=== PATIENT | male | born 1955 | race Caucasian/White ===

== ENCOUNTER 2017-08-01 13:17 | Emergency (ER) | payer MEDICAID, OTHER ==
[~2017-08-01] VITALS: Ht 177.8 cm; Wt 84.5 kg
[~2017-08-01 13:17] MED LIST: ALBU8HFA PO; ATEN25TA PO; NIT5P TD; NITR0.4T SL; SPIIN INH
[2017-08-01] MEDS ORDERED: ketorolac trometh. 30mg/ml inj. IV ONE (13:20)
[2017-08-01] MEDS ORDERED: normal saline 1000ML IV soln IVB ONE (13:20)
[2017-08-01 13:46] LABS: BASOPHILS # (AUTO) 0.1 X10'3 (0-0.2); BASOPHILS % (AUTO) 0.9 % (0-1); EOSINOPHILS # (AUTO) 0.1 X10'3 (0-0.9); EOSINOPHILS % (AUTO) 2.1 % (0-6); HEMATOCRIT 48.9 % (42.0-52.0); HEMOGLOBIN 16.9 g/dl (14.0-17.9); LYMPHOCYTES # (AUTO) 1.6 X10'3 (1.1-4.8); MEAN CORPUSCULAR HEMOGLOBIN 32.3 PG (27.0-31.0); MEAN CORPUSCULAR HGB CONC 34.5 % (33.0-36.5); MEAN CORPUSCULAR VOLUME 93.6 FL (78-98); MEAN PLATELET VOLUME 7.4 FL (7.4-10.4); MONOCYTES # (AUTO) 0.4 X10'3 (0-0.9); MONOCYTES % (AUTO) 7.2 % (2-12); NEUTROPHILS # (AUTO) 3.8 X10'3 (1.8-7.7); NEUTROPHILS % (AUTO) 62.8 % (42-75); PLATELET COUNT 128 X10'3 (140-440); RED BLOOD COUNT 5.23 X10'6 (4.70-6.10); RED CELL DISTRIBUTION WIDTH 13.9 % (11.5-14.5)
[2017-08-01 14:01] LABS: ALANINE AMINOTRANSFERASE 165 U/L (12-78); ALBUMIN 3.5 G/DL (3.4-5.0); ALBUMIN/GLOBULIN RATIO 0.9 (1.1-1.5); ALKALINE PHOSPHATASE 95 IU/L (46-116); ANION GAP 8 (8-16); ASPARTATE AMINO TRANSFERASE 58 U/L (10-37); BILIRUBIN,TOTAL 0.5 MG/DL (0.1-1.0); BLOOD UREA NITROGEN 17 MG/DL (7-18); BUN/CREATININE RATIO 20.2 (5.4-32.0); CALCIUM 8.7 MG/DL (8.5-10.1); CHLORIDE 105 MMOL/L (99-107); CREATININE 0.84 MG/DL (0.60-1.10); GLUCOSE 183 MG/DL (70-104); POTASSIUM 4.4 MMOL/L (3.5-5.1); SODIUM 140 MMOL/L (135-145); TOTAL CARBON DIOXIDE 27.5 MMOL/L (24-32); TOTAL PROTEIN 7.6 G/DL (6.4-8.2); eGFR > 90 ML/MIN
[2017-08-01 14:08] LABS: MAGNESIUM 1.9 MG/DL (1.5-2.4)
[2017-08-01 14:33] VITALS: BP 135/88
== END 2017-08-01 14:35 ==
LOC: EEVIPCON 13:17 → ER 13:17
DX: R07.89 Other chest pain (principal); I10 Essential (primary) hypertension; I25.2 Old myocardial infarction
CPT/HCPCS: 36415; 71045; 80053; 83735; 83880; 84484; 85025; 93005; 96374; 99285; J1885; J7030

== ENCOUNTER 2023-01-27 03:50 | Emergency (ER) | payer MEDICARE, MEDICAID ==
[~2023-01-27] VITALS: Ht 177.8 cm; Wt 81.5 kg
[~2023-01-27 03:50] MED LIST changes: +ATEN-236 PO; -ATEN25TA PO; -NIT5P TD; +NITR1PAT63 TD
[2023-01-27 04:09] VITALS: BP 126/74; PULSE 92; RESP 20; TEMP 98.5; O2SAT 96
[2023-01-27 04:53] LABS: BASOPHILS % (AUTO) 1.7 % (0-1); EOSINOPHILS # (AUTO) 0.4 X10'3 (0-0.9); EOSINOPHILS % (AUTO) 15.3 % (0-6); HEMATOCRIT 25.5 % (42.0-52.0); HEMOGLOBIN 8.2 g/dl (14.0-17.9); LYMPHOCYTES # (AUTO) 0.5 X10'3 (1.1-4.8); LYMPHOCYTES % (AUTO) 18.2 % (21-51); MEAN CORPUSCULAR HEMOGLOBIN 24.3 PG (27.0-31.0); MEAN CORPUSCULAR HGB CONC 32.2 g/dL (33.0-36.5); MEAN CORPUSCULAR VOLUME 75.4 FL (78-98); MEAN PLATELET VOLUME 7.9 FL (7.4-10.4); MONOCYTES # (AUTO) 0.4 X10'3 (0-0.9); MONOCYTES % (AUTO) 14.7 % (2-12); NEUTROPHILS # (AUTO) 1.3 X10'3 (1.8-7.7); NEUTROPHILS % (AUTO) 50.1 % (42-75); RED BLOOD COUNT 3.38 X10'6 (4.70-6.10); RED CELL DISTRIBUTION WIDTH 22.1 % (11.5-14.5); WHITE BLOOD COUNT 2.6 X10'3 (4.5-11.0)
[2023-01-27 05:07] LABS: ALANINE AMINOTRANSFERASE 41 U/L (12-78); ALBUMIN 2.6 G/DL (3.4-5.0); ALBUMIN/GLOBULIN RATIO 0.5 (1.1-1.5); ALKALINE PHOSPHATASE 119 IU/L (46-116); ANION GAP 9 (8-16); ASPARTATE AMINO TRANSFERASE 76 U/L (10-37); BILIRUBIN,TOTAL 1.5 MG/DL (0.1-1.0); BLOOD UREA NITROGEN 14 MG/DL (7-18); BUN/CREATININE RATIO 19.2 (10.0-20.0); CALCIUM 7.7 MG/DL (8.5-10.1); CHLORIDE 102 MMOL/L (99-107); CREATININE 0.73 MG/DL (0.60-1.10); ETHANOL 15 MG/DL (<10); GLUCOSE 101 MG/DL (70-104); LIPASE 35 U/L (16-77); MAGNESIUM 1.9 MG/DL (1.5-2.4); POTASSIUM 3.9 MMOL/L (3.5-5.1); SODIUM 132 MMOL/L (135-145); TOTAL CARBON DIOXIDE 21.4 MMOL/L (24-32); TOTAL PROTEIN 7.4 G/DL (6.4-8.2); eCRCL 103 ML/MIN; eGFR > 90 ML/MIN
[2023-01-27] MEDS ORDERED: PERM60CR19 TOP (05:18)
[2023-01-27 05:42] LABS: PLATELET COUNT 41 X10'3 (140-440)
[2023-01-27 05:49] LABS: TOTAL CELLS COUNTED 100
[2023-01-27 05:50] LABS: ANISOCYTOSIS 3+; MICROCYTOSIS 1+; PLATELET ESTIMATE DECREASED
== END 2023-01-27 05:26 | disposition home or self-care (01) ==
LOC: ER 03:51
DX: B86 Scabies (principal)
CPT/HCPCS: 36415; 80053; 80320; 83690; 83735; 85007; 85025; 99283

== ENCOUNTER 2023-06-02 00:04 | Inpatient (IN) | payer MEDICARE, MEDICAID ==
[~2023-06-02] VITALS: Ht 180.3 cm; Wt 85.0 kg
[~2023-06-02 00:04] MED LIST changes: +PERM60CR19 TOP
[2023-06-02 02:17] LABS: ALANINE AMINOTRANSFERASE 19 U/L (12-78); ALBUMIN/GLOBULIN RATIO 0.4 (1.1-1.5); ALKALINE PHOSPHATASE 107 IU/L (46-116); ANION GAP 5 (8-16); ASPARTATE AMINO TRANSFERASE 32 U/L (10-37); BILIRUBIN,TOTAL 1.4 MG/DL (0.1-1.0); BLOOD UREA NITROGEN 11 MG/DL (7-18); BUN/CREATININE RATIO 16.7 (10.0-20.0); CALCIUM 7.5 MG/DL (8.5-10.1); CHLORIDE 105 MMOL/L (99-107); CREATININE 0.66 MG/DL (0.60-1.10); POTASSIUM 3.7 MMOL/L (3.5-5.1); SODIUM 135 MMOL/L (135-145); TOTAL CARBON DIOXIDE 24.6 MMOL/L (24-32); TOTAL PROTEIN 7.5 G/DL (6.4-8.2); eCRCL 117 ML/MIN; eGFR > 90 ML/MIN
[2023-06-02 02:18] LABS: BASOPHILS % (AUTO) 1.1 % (0-1); EOSINOPHILS # (AUTO) 0.1 X10'3 (0-0.9); EOSINOPHILS % (AUTO) 5.6 % (0-6); HEMATOCRIT 23.3 % (42.0-52.0); HEMOGLOBIN 7.4 g/dl (14.0-17.9); LYMPHOCYTES # (AUTO) 0.4 X10'3 (1.1-4.8); LYMPHOCYTES % (AUTO) 16.6 % (21-51); MEAN CORPUSCULAR HEMOGLOBIN 25.6 PG (27.0-31.0); MEAN CORPUSCULAR HGB CONC 31.9 g/dL (33.0-36.5); MEAN CORPUSCULAR VOLUME 80.2 FL (78-98); MEAN PLATELET VOLUME 7.5 FL (7.4-10.4); MONOCYTES # (AUTO) 0.4 X10'3 (0-0.9); MONOCYTES % (AUTO) 16.6 % (2-12); NEUTROPHILS # (AUTO) 1.4 X10'3 (1.8-7.7); NEUTROPHILS % (AUTO) 60.1 % (42-75); RED CELL DISTRIBUTION WIDTH 21.1 % (11.5-14.5); WHITE BLOOD COUNT 2.3 X10'3 (4.5-11.0)
[2023-06-02 02:26] LABS: PRO BRAIN NATRIURETIC PEPTIDE 185 PG/ML (0-125)
[2023-06-02 02:39] LABS: GLUCOSE 88 MG/DL (70-104)
[2023-06-02] MEDS ORDERED: iohexol 350MG/ML 100ml bottle IV ONE (02:40)
[2023-06-02 04:45] LABS: PLATELET COUNT 41 X10'3 (140-440)
[2023-06-02 05:03] LABS: PLATELET ESTIMATE DECREASED; TOTAL CELLS COUNTED 100
[2023-06-02 05:04] LABS: ANISOCYTOSIS 3+
[2023-06-02 05:05] LABS: MICROCYTOSIS 1+
[2023-06-02] MEDS: ipratropium/albuterol 3ml nebule NEB ONE (05:49)
[2023-06-02 05:52] VITALS: PULSE 103; RESP 22; O2SAT 94
[2023-06-02 05:55] VITALS: PULSE 105; RESP 18; O2SAT 99
[2023-06-02] MEDS ORDERED: HYDROcodone/acetaminophen 5mg/325mg tablet PO PRN (05:55)
[2023-06-02] MEDS ORDERED: mag hydrox/Alum hydrox/simeth 30ml oral suspension PO PRN (05:55)
[2023-06-02] MEDS ORDERED: ondansetron/PF 4mg/2ml inj IV PRN (05:55)
[2023-06-02] MEDS ORDERED: acetaminophen 325mg tablet PO PRN ×2 (05:55)
[2023-06-02] MEDS ORDERED: morphine 2 MG/ML inj. syringe IV PRN ×2 (05:55)
[2023-06-02] MEDS ORDERED: magnesium hydroxide 30ml (MOM) UD suspension PO PRN (05:55)
[2023-06-02 07:35] LABS: APTT 30 SECONDS (22-32); INR 1.4 INR; PROTHROMBIN TIME 14.5 SECONDS (9.0-12.0)
[2023-06-02] MEDS: normal saline 1000ml 1,000 ML IV SCH (07:45)
[2023-06-02] MEDS: docusate sod 100mg capsule PO SCH (08:00)
[2023-06-02] MEDS: levoFLOXACIN 750MG TABLET PO SCH (11:13)
[2023-06-02] MEDS: HYDROcodone/acetaminophen 10/325mg tab PO PRN (11:14)
[2023-06-02] MEDS ORDERED: dextrose 50%-water 50ml dispensing syringe IV PRN (16:00)
[2023-06-02] MEDS ORDERED: LORazepam 2 mg/ml vial IV PRN (16:00)
[2023-06-02] MEDS ORDERED: LORazepam 1 MG tablet PO PRN (16:00)
[2023-06-02 21:42] VITALS: BP 130/78; PULSE 96; RESP 18; TEMP 97.5; O2SAT 96
[2023-06-02] MEDS: atenolol 25mg tablet PO SCH (21:51)
[2023-06-03] VITALS (12 sets, daily range): BP systolic 113–128; BP diastolic 59–79; PULSE 67–85; RESP 16–22; TEMP 98–98.9; O2SAT 90–95
[2023-06-03 06:57] LABS: EOSINOPHILS # (AUTO) 0.2 X10'3 (0-0.9); LYMPHOCYTES # (AUTO) 0.5 X10'3 (1.1-4.8); MEAN CORPUSCULAR HEMOGLOBIN 25.6 PG (27.0-31.0); MEAN CORPUSCULAR HGB CONC 31.7 g/dL (33.0-36.5); MEAN PLATELET VOLUME 7.2 FL (7.4-10.4); MONOCYTES # (AUTO) 0.4 X10'3 (0-0.9)
[2023-06-03 06:58] LABS: ALANINE AMINOTRANSFERASE 17 U/L (12-78); ALBUMIN/GLOBULIN RATIO 0.3 (1.1-1.5); ALKALINE PHOSPHATASE 122 IU/L (46-116); ANION GAP 5 (8-16); ASPARTATE AMINO TRANSFERASE 35 U/L (10-37); BILIRUBIN,TOTAL 1.7 MG/DL (0.1-1.0); BLOOD UREA NITROGEN 13 MG/DL (7-18); BUN/CREATININE RATIO 21.3 (10.0-20.0); CALCIUM 7.4 MG/DL (8.5-10.1); CHLORIDE 105 MMOL/L (99-107); CREATININE 0.61 MG/DL (0.60-1.10); LIPASE 35 U/L (16-77); SODIUM 134 MMOL/L (135-145); TOTAL CARBON DIOXIDE 24.1 MMOL/L (24-32); TOTAL PROTEIN 7.9 G/DL (6.4-8.2); eCRCL 127 ML/MIN; eGFR > 90 ML/MIN
[2023-06-03 07:00] LABS: HEMATOCRIT 25.1 % (42.0-52.0); LYMPHOCYTES % (AUTO) 15.2 % (21-51); MONOCYTES % (AUTO) 11.3 % (2-12); NEUTROPHILS # (AUTO) 2.3 X10'3 (1.8-7.7); NEUTROPHILS % (AUTO) 67.5 % (42-75); WHITE BLOOD COUNT 3.4 X10'3 (4.5-11.0)
[2023-06-03 07:08] LABS: GLUCOSE 91 MG/DL (70-104)
[2023-06-03 07:15] LABS: PLATELET COUNT 46 X10'3 (140-440)
[2023-06-03] MEDS: ipratropium 0.5 MG/2.5ML nebule IH SCH (08:24)
[2023-06-03] MEDS: multivitamins, therapeutics tablet PO SCH (08:46)
[2023-06-03] MEDS: nicotine 14mg patch - 24hr TD SCH (08:47)
[2023-06-04] VITALS (7 sets, daily range): BP systolic 128–132; BP diastolic 78–86; PULSE 66–89; RESP 10–18; TEMP 97.9–98.6; O2SAT 90–95
[2023-06-04 07:47] LABS: WHITE BLOOD COUNT 2.7 X10'3 (4.5-11.0)
[2023-06-04 07:49] LABS: HEMATOCRIT 24.7 % (42.0-52.0); HEMOGLOBIN 7.9 g/dl (14.0-17.9); MEAN CORPUSCULAR HEMOGLOBIN 25.6 PG (27.0-31.0); MEAN CORPUSCULAR HGB CONC 31.9 g/dL (33.0-36.5); MEAN CORPUSCULAR VOLUME 80.4 FL (78-98); MEAN PLATELET VOLUME 7.9 FL (7.4-10.4); RED BLOOD COUNT 3.08 X10'6 (4.70-6.10); RED CELL DISTRIBUTION WIDTH 20.5 % (11.5-14.5)
[2023-06-04 07:56] LABS: PLATELET COUNT 44 X10'3 (140-440)
[2023-06-04 08:12] LABS: ALANINE AMINOTRANSFERASE 17 U/L (12-78); ALBUMIN 1.9 G/DL (3.4-5.0); ALBUMIN/GLOBULIN RATIO 0.3 (1.1-1.5); ALKALINE PHOSPHATASE 108 IU/L (46-116); ANION GAP 7 (8-16); ASPARTATE AMINO TRANSFERASE 36 U/L (10-37); BILIRUBIN,TOTAL 2.2 MG/DL (0.1-1.0); BLOOD UREA NITROGEN 12 MG/DL (7-18); BUN/CREATININE RATIO 19.7 (10.0-20.0); CALCIUM 7.3 MG/DL (8.5-10.1); CHLORIDE 102 MMOL/L (99-107); CREATININE 0.61 MG/DL (0.60-1.10); LIPASE 28 U/L (16-77); SODIUM 130 MMOL/L (135-145); TOTAL CARBON DIOXIDE 20.7 MMOL/L (24-32); TOTAL PROTEIN 7.6 G/DL (6.4-8.2); eCRCL 127 ML/MIN; eGFR > 90 ML/MIN
[2023-06-04 08:14] LABS: GLUCOSE 76 MG/DL (70-104)
[2023-06-04 08:42] LABS: ANISOCYTOSIS 3+; PLATELET ESTIMATE DECREASED; TOTAL CELLS COUNTED 100
[2023-06-04 08:43] LABS: ACANTHOCYTES FEW; ELLIPTOCYTES FEW; TEAR DROP CELLS FEW
[2023-06-04] MEDS ORDERED: FOLI1TAB27 PO (13:52)
[2023-06-04] MEDS ORDERED: MULT-25 PO (13:52)
[2023-06-04] MEDS ORDERED: LEVO750T68 PO (13:52)
[2023-06-04] MEDS ORDERED: NICO-631 TD (13:52)
[2023-06-04] MEDS ORDERED: thiamine tablet PO (13:52)
[2023-06-06] MEDS ORDERED: thiamine 100mg tablet PO SCH (08:00)
[2023-06-07] MEDS ORDERED: folic acid 1mg tablet PO SCH (08:00)
== END 2023-06-04 17:25 | disposition home or self-care (01) | DRG 193 ==
LOC: ER 00:04 → ED HOLD 05:54 → ORTHO 4S 21:10
PROVIDERS: ADMIT Internal Medicine; ATTEND Internal Medicine
PROC: B32T1ZZ Computerized Tomography (CT Scan) of Left Pulmonary Artery using Low Osmolar Contrast (ICD-10-PCS; principal; 2023-06-02)
PROC: B3201ZZ Computerized Tomography (CT Scan) of Thoracic Aorta using Low Osmolar Contrast (ICD-10-PCS; 2023-06-02)
PROC: B32S1ZZ Computerized Tomography (CT Scan) of Right Pulmonary Artery using Low Osmolar Contrast (ICD-10-PCS; 2023-06-02)
PROC: 05HY33Z Insertion of Infusion Device into Upper Vein, Percutaneous Approach (ICD-10-PCS; 2023-06-02)
DX: J18.9 Pneumonia, unspecified organism (principal); J96.21 Acute and chronic respiratory failure with hypoxia; J44.1 Chronic obstructive pulmonary disease with (acute) exacerbation; D61.818 Other pancytopenia; J44.0 Chronic obstructive pulmonary disease with (acute) lower respiratory infection; R65.10 Systemic inflammatory response syndrome (SIRS) of non-infectious origin without acute organ dysfunction; F17.210 Nicotine dependence, cigarettes, uncomplicated; I25.2 Old myocardial infarction; I50.9 Heart failure, unspecified; R16.1 Splenomegaly, not elsewhere classified; Z20.822 Contact with and (suspected) exposure to COVID-19; K43.9 Ventral hernia without obstruction or gangrene; I11.0 Hypertensive heart disease with heart failure; K72.10 Chronic hepatic failure without coma; K74.60 Unspecified cirrhosis of liver; G89.29 Other chronic pain; M54.9 Dorsalgia, unspecified; F10.20 Alcohol dependence, uncomplicated; I25.10 Atherosclerotic heart disease of native coronary artery without angina pectoris; Z79.899 Other long term (current) drug therapy; Z95.1 Presence of aortocoronary bypass graft
CPT/HCPCS: 36415; 71045; 71275; 80053; 83690; 83880; 84145; 84484; 85007; 85025; 85379; 85610; 85651; 85730; 86885; 86900; 86901; 86920; 87081; 87502; 87503; 87811; 93005; 94640; 94760; 99285; A4615; A6250; G0378; J3490; J7030; Q9967

== ENCOUNTER 2023-11-29 04:58 | Inpatient (IN) | payer MEDICARE, MEDICAID ==
[~2023-11-29] VITALS: Ht 177.8 cm; Wt 81.8 kg
[~2023-11-29 04:58] MED LIST changes: +FOLI1TAB27 PO; +FURO40TA4 PO; +LACT10SO7 PO; +MULT-25 PO; +NICO-631 TD; -NITR1PAT63 TD; +PANT40TA54 PO; -PERM60CR19 TOP; +PRED20TA PO; +RIFA550T PO; +SPIR50TA5 PO; +thiamine tablet PO
[2023-11-29 05:52] LABS: ALANINE AMINOTRANSFERASE 34 U/L (12-78); ALKALINE PHOSPHATASE 119 IU/L (46-116); ANION GAP 5 (8-16); ASPARTATE AMINO TRANSFERASE 43 U/L (10-37); BILIRUBIN,TOTAL 6.8 MG/DL (0.1-1.0); BLOOD UREA NITROGEN 22 MG/DL (7-18); BUN/CREATININE RATIO 23.7 (10.0-20.0); CALCIUM 7.1 MG/DL (8.5-10.1); CHLORIDE 102 MMOL/L (99-107); CREATININE 0.93 MG/DL (0.60-1.10); GLUCOSE 98 MG/DL (70-104); SODIUM 134 MMOL/L (135-145); TOTAL CARBON DIOXIDE 26.7 MMOL/L (24-32); eCRCL 80 ML/MIN; eGFR 81 ML/MIN
[2023-11-29 06:00] LABS: PRO BRAIN NATRIURETIC PEPTIDE 651 PG/ML (0-125)
[2023-11-29 06:02] LABS: ALBUMIN/GLOBULIN RATIO 0.6 (1.1-1.5); POTASSIUM 4.3 MMOL/L (3.5-5.1); TOTAL PROTEIN 5.1 G/DL (6.4-8.2)
[2023-11-29] MEDS: aspirin 81mg tab.chew PO ONE (06:59)
[2023-11-29] MEDS: morphine 2 MG/ML inj. syringe IV ONE (07:01)
[2023-11-29] MEDS: ondansetron/PF 4mg/2ml inj IV ONE (07:01)
[2023-11-29] MEDS: furosemide 10 MG/1 ML 10ml inj IV ONE (07:03)
[2023-11-29] MEDS ORDERED: iohexol 350MG/ML 100ml bottle IV ONE (07:28)
[2023-11-29 08:33] LABS: BASOPHILS % (AUTO) 0.3 % (0-1); HEMATOCRIT 24.4 % (42.0-52.0); HEMOGLOBIN 7.5 g/dl (14.0-17.9); LYMPHOCYTES # (AUTO) 0.6 X10'3 (1.1-4.8); RED BLOOD COUNT 3.13 X10'6 (4.70-6.10); WHITE BLOOD COUNT 10.3 X10'3 (4.5-11.0)
[2023-11-29 08:34] LABS: EOSINOPHILS # (AUTO) 0.1 X10'3 (0-0.9); EOSINOPHILS % (AUTO) 0.6 % (0-6); LYMPHOCYTES % (AUTO) 6.2 % (21-51); MEAN CORPUSCULAR HGB CONC 30.8 g/dL (33.0-36.5); MEAN CORPUSCULAR VOLUME 77.9 FL (78-98); MEAN PLATELET VOLUME 7.9 FL (7.4-10.4); NEUTROPHILS # (AUTO) 8.5 X10'3 (1.8-7.7); NEUTROPHILS % (AUTO) 82.9 % (42-75); RED CELL DISTRIBUTION WIDTH 25.1 % (11.5-14.5)
[2023-11-29 08:42] LABS: MAGNESIUM 1.4 MG/DL (1.5-2.4)
[2023-11-29 09:05] LABS: PLATELET COUNT 13 X10'3 (140-440)
[2023-11-29] MEDS ORDERED: ondansetron/PF 4mg/2ml inj IV PRN (10:10)
[2023-11-29] MEDS ORDERED: magnesium sulf-water 2g/50mL 50 ML IV PRN (10:10)
[2023-11-29] MEDS ORDERED: magnesium sulf-water 4G/100mL 100 ML IV PRN (10:10)
[2023-11-29] MEDS ORDERED: potassium Cl 40MEQ/1/2NS 520ml 520 ML IV PRN (10:10)
[2023-11-29] MEDS ORDERED: potassium Cl 20 mEq SR tablet PO PRN ×2 (10:10)
[2023-11-29] MEDS: albumin (human) 25% 100 ML IV solution IV ONE (10:42)
[2023-11-29] MEDS: magnesium Cl slow-release 64mg tablet PO PRN (11:19)
[2023-11-29 15:00] VITALS: BP 108/69; PULSE 101; RESP 16; TEMP 98.3; O2SAT 96
[2023-11-29 15:20] VITALS: RESP 16; O2SAT 96
[2023-11-29 18:00] VITALS: BP 120/71; PULSE 101; RESP 18; TEMP 97.6; O2SAT 93
[2023-11-29] MEDS: ipratropium/albuterol 3ml nebule NEB SCH (19:00)
[2023-11-29 20:00] VITALS: RESP 20; O2SAT 92
[2023-11-29] MEDS: K and/or MAG REPLACEMENT MC SCH (20:00)
[2023-11-29] MEDS: nystatin 15 GM powder TP SCH (20:00)
[2023-11-29 23:38] VITALS: PULSE 97; RESP 18; O2SAT 95
[2023-11-29 23:43] VITALS: PULSE 72; RESP 20
[2023-11-30] VITALS (22 sets, daily range): BP systolic 91–106; BP diastolic 46–65; PULSE 76–107; RESP 16–24; TEMP 97.5–99; O2SAT 92–98
[2023-11-30] MEDS ORDERED: magnesium sulf-water 4G/100mL 100 ML IV PRN (08:15)
[2023-11-30 08:36] LABS: EOSINOPHILS # (AUTO) 0.3 X10'3 (0-0.9); HEMOGLOBIN 7.1 g/dl (14.0-17.9); LYMPHOCYTES # (AUTO) 0.7 X10'3 (1.1-4.8); MEAN CORPUSCULAR HEMOGLOBIN 23.7 PG (27.0-31.0); NEUTROPHILS # (AUTO) 8.6 X10'3 (1.8-7.7); RED CELL DISTRIBUTION WIDTH 24.8 % (11.5-14.5)
[2023-11-30 08:38] LABS: ANION GAP 4 (8-16); BASOPHILS # (AUTO) 0.1 X10'3 (0-0.2); BASOPHILS % (AUTO) 0.5 % (0-1); BLOOD UREA NITROGEN 21 MG/DL (7-18); BUN/CREATININE RATIO 31.3 (10.0-20.0); CALCIUM 7.1 MG/DL (8.5-10.1); CHLORIDE 101 MMOL/L (99-107); CREATININE 0.67 MG/DL (0.60-1.10); EOSINOPHILS % (AUTO) 3.1 % (0-6); GLUCOSE 105 MG/DL (70-104); HEMATOCRIT 23.6 % (42.0-52.0); LYMPHOCYTES % (AUTO) 6.8 % (21-51); MAGNESIUM 1.8 MG/DL (1.5-2.4); MEAN CORPUSCULAR HGB CONC 30.1 g/dL (33.0-36.5); MEAN CORPUSCULAR VOLUME 78.6 FL (78-98); MEAN PLATELET VOLUME 8.5 FL (7.4-10.4); MONOCYTES # (AUTO) 1.3 X10'3 (0-0.9); MONOCYTES % (AUTO) 11.5 % (2-12); NEUTROPHILS % (AUTO) 78.1 % (42-75); POTASSIUM 4.2 MMOL/L (3.5-5.1); SODIUM 134 MMOL/L (135-145); TOTAL CARBON DIOXIDE 29.1 MMOL/L (24-32); eCRCL 110 ML/MIN; eGFR > 90 ML/MIN
[2023-11-30 09:41] LABS: PLATELET COUNT 23 X10'3 (140-440)
[2023-11-30] MEDS ORDERED: nitroGLYCERIN 0.4mg SUBLingual tab SL PRN (10:35)
[2023-11-30] MEDS: ceFAZolin/D5W- 1GM premix 50 ML IV SCH (18:28)
[2023-11-30] MEDS: pantoprazole 40mg Tablet.DR PO SCH (20:46)
[2023-11-30] MEDS: acetaminophen 325mg tablet PO PRN (20:53)
[2023-11-30] MEDS: Melatonin 3mg tablet PO ONE (21:40)
[2023-12-01] VITALS (31 sets, daily range): BP systolic 99–139; BP diastolic 58–83; PULSE 90–103; RESP 16–34; TEMP 97.3–98.5; O2SAT 90–97
[2023-12-01 01:29] LABS: BASOPHILS # (AUTO) 0.1 X10'3 (0-0.2); EOSINOPHILS # (AUTO) 0.4 X10'3 (0-0.9); LYMPHOCYTES # (AUTO) 0.9 X10'3 (1.1-4.8); MONOCYTES # (AUTO) 1.3 X10'3 (0-0.9)
[2023-12-01 01:31] LABS: BASOPHILS % (AUTO) 0.7 % (0-1); HEMATOCRIT 25.5 % (42.0-52.0); HEMOGLOBIN 8.2 g/dl (14.0-17.9); LYMPHOCYTES % (AUTO) 9.7 % (21-51); MEAN CORPUSCULAR VOLUME 77.9 FL (78-98); MEAN PLATELET VOLUME 8.6 FL (7.4-10.4); MONOCYTES % (AUTO) 14.6 % (2-12); NEUTROPHILS # (AUTO) 6.4 X10'3 (1.8-7.7); RED BLOOD COUNT 3.27 X10'6 (4.70-6.10); RED CELL DISTRIBUTION WIDTH 23.4 % (11.5-14.5)
[2023-12-01 02:13] LABS: PLATELET COUNT 28 X10'3 (140-440)
[2023-12-01 02:26] LABS: PLATELET ESTIMATE DECREASED
[2023-12-01 02:27] LABS: ACANTHOCYTES FEW; ANISOCYTOSIS 3+; BURR CELLS FEW; HYPOCHROMASIA 2+; MICROCYTOSIS 1+; SCHISTOCYTES FEW; TARGET CELLS FEW
[2023-12-01 02:28] LABS: ELLIPTOCYTES 1+; POIKILOCYTOSIS 2+; POLYCHROMASIA 1+
[2023-12-01 08:33] LABS: ANION GAP 0 (8-16); BLOOD UREA NITROGEN 19 MG/DL (7-18); BUN/CREATININE RATIO 32.8 (10.0-20.0); CALCIUM 7.3 MG/DL (8.5-10.1); CHLORIDE 101 MMOL/L (99-107); CREATININE 0.58 MG/DL (0.60-1.10); GLUCOSE 115 MG/DL (70-104); MAGNESIUM 1.9 MG/DL (1.5-2.4); POTASSIUM 3.8 MMOL/L (3.5-5.1); SODIUM 131 MMOL/L (135-145); eCRCL 128 ML/MIN; eGFR > 90 ML/MIN
[2023-12-01] MEDS: spironolactone 50 MG tablet PO SCH (10:22)
[2023-12-01] MEDS: ipratropium/albuterol 3ml nebule NEB SCH (10:45)
[2023-12-01 10:48] LABS: ABG BASE EXCESS 0.7 mmol/L (-2.0-3.0); ABG OXYGEN SATURATION 94.3 % (94.0-98.0); ABG PCO2 (T) 44.6 mmHg (35.0-48.0); ABG PH (T) 7.383 (7.350-7.450); ABG PO2 (T) 73.7 mmHg (83.0-108.0); ALLEN'S TEST POSITIVE; FCOHb 1.6 % (0.5-1.5); FHHb 5.6 % (0.0-5.0); FLOW 8 L/min; FMetHb 0.3 % (0.0-1.5); FO2Hb 92.5 % (94.0-98.0); MODE MASK - SIMPLE; TOTAL HEMOGLOBIN 9.4 G/dl (13.5-17.5)
[2023-12-01] MEDS: furosemide 20 MG/2 ML vial ONE (10:48)
[2023-12-01] MEDS: furosemide 40mg/4ml inj IV STA (10:52)
[2023-12-01] MEDS: methylPREDNISolone sod succ 125mg/2ml vial IV ONE (11:03)
[2023-12-01 11:26] LABS: APTT 37 SECONDS (22-32); INR 2.1 INR; PROTHROMBIN TIME 20.6 SECONDS (9.0-12.0)
[2023-12-01 11:35] LABS: ALBUMIN 2.1 G/DL (3.4-5.0); ANION GAP 4 (8-16); BLOOD UREA NITROGEN 17 MG/DL (7-18); BUN/CREATININE RATIO 25.8 (10.0-20.0); CALCIUM 7.3 MG/DL (8.5-10.1); CHLORIDE 100 MMOL/L (99-107); CREATININE 0.66 MG/DL (0.60-1.10); GLUCOSE 148 MG/DL (70-104); POTASSIUM 3.9 MMOL/L (3.5-5.1); PRO BRAIN NATRIURETIC PEPTIDE 659 PG/ML (0-125); SODIUM 131 MMOL/L (135-145); TOTAL CARBON DIOXIDE 27.2 MMOL/L (24-32); eCRCL 112 ML/MIN; eGFR > 90 ML/MIN
[2023-12-01 11:36] LABS: BASOPHILS % (AUTO) 0.5 % (0-1); EOSINOPHILS # (AUTO) 0.4 X10'3 (0-0.9); EOSINOPHILS % (AUTO) 4.5 % (0-6); HEMATOCRIT 26.6 % (42.0-52.0); HEMOGLOBIN 8.5 g/dl (14.0-17.9); LYMPHOCYTES # (AUTO) 0.7 X10'3 (1.1-4.8); LYMPHOCYTES % (AUTO) 8.9 % (21-51); MEAN CORPUSCULAR HEMOGLOBIN 25.4 PG (27.0-31.0); MEAN CORPUSCULAR VOLUME 79.4 FL (78-98); MEAN PLATELET VOLUME 8.2 FL (7.4-10.4); MONOCYTES % (AUTO) 12.1 % (2-12); NEUTROPHILS # (AUTO) 6.1 X10'3 (1.8-7.7); PHOSPHORUS 2.3 MG/DL (2.3-4.5); RED BLOOD COUNT 3.35 X10'6 (4.70-6.10); RED CELL DISTRIBUTION WIDTH 23.6 % (11.5-14.5); WHITE BLOOD COUNT 8.3 X10'3 (4.5-11.0)
[2023-12-01 11:43] LABS: PLATELET COUNT 44 X10'3 (140-440)
[2023-12-01] MEDS: magnesium hydroxide 30ml (MOM) UD suspension PO PRN (13:07)
[2023-12-01] MEDS: acetaminophen 325mg tablet PO PRN (14:54)
[2023-12-01] MEDS: traMADol 50MG tablet PO PRN (15:19)
[2023-12-01 16:46] LABS: ABG BASE EXCESS 1.1 mmol/L (-2.0-3.0); ABG OXYGEN SATURATION 92.9 % (94.0-98.0); ABG PCO2 (T) 41.9 mmHg (35.0-48.0); ABG PH (T) 7.409 (7.350-7.450); ABG PO2 (T) 68.3 mmHg (83.0-108.0); ALLEN'S TEST POSITIVE; FCOHb 0.9 % (0.5-1.5); FLOW 25 L/min; FMetHb 0.3 % (0.0-1.5); FO2Hb 91.8 % (94.0-98.0); MODE HIGH FLOW; PATIENT TEMPERATURE 36.8; TOTAL HEMOGLOBIN 9.8 G/dl (13.5-17.5)
[2023-12-01] MEDS: PERFLUTREN PROTEIN-A MICROSPHR (Optison) 0.22 MG/ML 3ML VIAL IV ONE (16:50)
[2023-12-01] MEDS: furosemide 40mg/4ml inj IV ONE (17:20)
[2023-12-01] MEDS: albumin (human) 25% 100 ML IV solution IV ONE (17:28)
[2023-12-01 17:34] LABS: D-DIMER 3.31 MG/L FEU (0-0.50)
[2023-12-01] MEDS: methylPREDNISolone sod succ 125mg/2ml vial IV SCH (20:18)
[2023-12-01] MEDS ORDERED: Melatonin 3mg tablet PO ONE (21:00)
[2023-12-01] MEDS: LORazepam 2 mg/ml vial IV ONE (21:09)
[2023-12-02] VITALS (27 sets, daily range): BP systolic 99–119; BP diastolic 51–95; PULSE 76–103; RESP 13–35; TEMP 96.4–98.2; O2SAT 93–99
[2023-12-02] MEDS ORDERED: LORazepam 2 mg/ml vial IV PRN (04:00)
[2023-12-02] MEDS: LORazepam 2 mg/ml vial IV ONE (04:17)
[2023-12-02 07:26] LABS: ALBUMIN 2.4 G/DL (3.4-5.0); ANION GAP 3 (8-16); BLOOD UREA NITROGEN 22 MG/DL (7-18); BUN/CREATININE RATIO 25.9 (10.0-20.0); CALCIUM 7.4 MG/DL (8.5-10.1); CHLORIDE 100 MMOL/L (99-107); CREATININE 0.85 MG/DL (0.60-1.10); GLUCOSE 153 MG/DL (70-104); MAGNESIUM 1.9 MG/DL (1.5-2.4); POTASSIUM 4.4 MMOL/L (3.5-5.1); SODIUM 133 MMOL/L (135-145); TOTAL CARBON DIOXIDE 30.1 MMOL/L (24-32); eCRCL 87 ML/MIN; eGFR 90 ML/MIN
[2023-12-02 08:18] LABS: BASOPHILS % (AUTO) 0.1 % (0-1); EOSINOPHILS % (AUTO) 0 % (0-6); HEMATOCRIT 28.6 % (42.0-52.0); HEMOGLOBIN 8.8 g/dl (14.0-17.9); LYMPHOCYTES # (AUTO) 0.5 X10'3 (1.1-4.8); LYMPHOCYTES % (AUTO) 5.1 % (21-51); MEAN CORPUSCULAR HEMOGLOBIN 24.7 PG (27.0-31.0); MEAN CORPUSCULAR HGB CONC 30.9 g/dL (33.0-36.5); MEAN CORPUSCULAR VOLUME 79.8 FL (78-98); MEAN PLATELET VOLUME 8.2 FL (7.4-10.4); MONOCYTES # (AUTO) 0.5 X10'3 (0-0.9); MONOCYTES % (AUTO) 5.3 % (2-12); NEUTROPHILS # (AUTO) 9.4 X10'3 (1.8-7.7); NEUTROPHILS % (AUTO) 89.5 % (42-75); RED BLOOD COUNT 3.58 X10'6 (4.70-6.10); RED CELL DISTRIBUTION WIDTH 24.1 % (11.5-14.5); WHITE BLOOD COUNT 10.4 X10'3 (4.5-11.0)
[2023-12-02 08:21] LABS: PLATELET COUNT 46 X10'3 (140-440)
[2023-12-02] MEDS: levoFLOXACIN-Levaquin 500mg/D5 100 ML IV SCH (10:36)
[2023-12-02 14:53] LABS: ABG BASE EXCESS 5.4 mmol/L (-2.0-3.0); ABG HCO3 30.3 mmol/L (21.0-28.0); ABG OXYGEN SATURATION 95.6 % (94.0-98.0); ABG PCO2 (T) 45.8 mmHg (35.0-48.0); ABG PH (T) 7.438 (7.350-7.450); ABG PO2 (T) 77.5 mmHg (83.0-108.0); ALLEN'S TEST POSITIVE; FCOHb 0.3 % (0.5-1.5); FHHb 4.4 % (0.0-5.0); FMetHb 0.3 % (0.0-1.5); MODE MASK - BIPAP; RESPIRATORY RATE 12 b/min; TOTAL HEMOGLOBIN 9.4 G/dl (13.5-17.5)
[2023-12-02] MEDS: furosemide 40mg/4ml inj IV SCH (15:55)
[2023-12-02] MEDS: morphine 2 MG/ML inj. syringe IV ONE (22:07)
[2023-12-03] VITALS (28 sets, daily range): BP systolic 105–128; BP diastolic 67–77; PULSE 78–110; RESP 13–32; TEMP 97.3–98.8; O2SAT 92–98
[2023-12-03 07:50] LABS: BASOPHILS % (AUTO) 0 % (0-1); EOSINOPHILS % (AUTO) 0 % (0-6); HEMATOCRIT 28.3 % (42.0-52.0); HEMOGLOBIN 8.6 g/dl (14.0-17.9); LYMPHOCYTES # (AUTO) 0.6 X10'3 (1.1-4.8); LYMPHOCYTES % (AUTO) 4.8 % (21-51); MEAN CORPUSCULAR HEMOGLOBIN 24.6 PG (27.0-31.0); MEAN CORPUSCULAR HGB CONC 30.4 g/dL (33.0-36.5); MEAN CORPUSCULAR VOLUME 80.9 FL (78-98); MEAN PLATELET VOLUME 8.1 FL (7.4-10.4); MONOCYTES # (AUTO) 0.5 X10'3 (0-0.9); MONOCYTES % (AUTO) 4.3 % (2-12); NEUTROPHILS % (AUTO) 90.9 % (42-75); PLATELET COUNT 61 X10'3 (140-440); RED BLOOD COUNT 3.49 X10'6 (4.70-6.10); RED CELL DISTRIBUTION WIDTH 24.5 % (11.5-14.5); WHITE BLOOD COUNT 12.1 X10'3 (4.5-11.0)
[2023-12-03 07:53] LABS: ALBUMIN 2.2 G/DL (3.4-5.0); ANION GAP 2 (8-16); BLOOD UREA NITROGEN 31 MG/DL (7-18); BUN/CREATININE RATIO 36.5 (10.0-20.0); CALCIUM 7.6 MG/DL (8.5-10.1); CHLORIDE 101 MMOL/L (99-107); CREATININE 0.85 MG/DL (0.60-1.10); GLUCOSE 133 MG/DL (70-104); MAGNESIUM 2.1 MG/DL (1.5-2.4); POTASSIUM 4.7 MMOL/L (3.5-5.1); SODIUM 134 MMOL/L (135-145); TOTAL CARBON DIOXIDE 31.3 MMOL/L (24-32); eCRCL 87 ML/MIN; eGFR 90 ML/MIN
[2023-12-03 11:45] LABS: ABG BASE EXCESS 4.3 mmol/L (-2.0-3.0); ABG HCO3 28.9 mmol/L (21.0-28.0); ABG OXYGEN SATURATION 92.5 % (94.0-98.0); ABG PCO2 (T) 42.5 mmHg (35.0-48.0); ABG PH (T) 7.449 (7.350-7.450); ABG PO2 (T) 64.7 mmHg (83.0-108.0); ALLEN'S TEST POSITIVE; FCOHb 0.4 % (0.5-1.5); FHHb 7.4 % (0.0-5.0); FLOW 25 L/min; FMetHb 0.3 % (0.0-1.5); FO2Hb 91.9 % (94.0-98.0); MODE HIGH FLOW; PATIENT TEMPERATURE 36.6
[2023-12-03] MEDS: methylPREDNISolone sod succ/PF 40mg inj. IV SCH (19:42)
[2023-12-03] MEDS: furosemide 40mg/4ml inj IV SCH (19:45)
[2023-12-03] MEDS: LORazepam 2 mg/ml vial IV PRN (23:49)
[2023-12-04] VITALS (26 sets, daily range): BP systolic 119–154; BP diastolic 73–91; PULSE 82–105; RESP 14–27; TEMP 97.1–98.1; O2SAT 12–98
[2023-12-04 07:14] LABS: ALBUMIN 2.2 G/DL (3.4-5.0); ANION GAP 0 (8-16); BLOOD UREA NITROGEN 35 MG/DL (7-18); BUN/CREATININE RATIO 49.3 (10.0-20.0); CALCIUM 7.6 MG/DL (8.5-10.1); CHLORIDE 101 MMOL/L (99-107); CREATININE 0.71 MG/DL (0.60-1.10); GLUCOSE 132 MG/DL (70-104); POTASSIUM 4.5 MMOL/L (3.5-5.1); SODIUM 135 MMOL/L (135-145); TOTAL CARBON DIOXIDE 33.7 MMOL/L (24-32); eCRCL 104 ML/MIN; eGFR > 90 ML/MIN
[2023-12-04 07:15] LABS: BASOPHILS % (AUTO) 0.2 % (0-1); EOSINOPHILS % (AUTO) 0 % (0-6); HEMATOCRIT 25.7 % (42.0-52.0); HEMOGLOBIN 8.2 g/dl (14.0-17.9); LYMPHOCYTES # (AUTO) 0.4 X10'3 (1.1-4.8); LYMPHOCYTES % (AUTO) 4.8 % (21-51); MEAN CORPUSCULAR HEMOGLOBIN 25.3 PG (27.0-31.0); MEAN CORPUSCULAR HGB CONC 31.8 g/dL (33.0-36.5); MEAN CORPUSCULAR VOLUME 79.5 FL (78-98); MEAN PLATELET VOLUME 8.2 FL (7.4-10.4); MONOCYTES # (AUTO) 0.6 X10'3 (0-0.9); MONOCYTES % (AUTO) 6.2 % (2-12); NEUTROPHILS # (AUTO) 8.2 X10'3 (1.8-7.7); NEUTROPHILS % (AUTO) 88.8 % (42-75); PLATELET COUNT 66 X10'3 (140-440); RED BLOOD COUNT 3.24 X10'6 (4.70-6.10); RED CELL DISTRIBUTION WIDTH 25.5 % (11.5-14.5); WHITE BLOOD COUNT 9.3 X10'3 (4.5-11.0)
[2023-12-04 09:30] LABS: ALANINE AMINOTRANSFERASE 34 U/L (12-78); ALBUMIN/GLOBULIN RATIO 0.7 (1.1-1.5); ALKALINE PHOSPHATASE 111 IU/L (46-116); ASPARTATE AMINO TRANSFERASE 34 U/L (10-37); BILIRUBIN,DIRECT 1.9 MG/DL (0-0.3); BILIRUBIN,TOTAL 3.6 MG/DL (0.1-1.0); TOTAL PROTEIN 5.3 G/DL (6.4-8.2)
[2023-12-04] MEDS: lactose-reduced food (Ensure High Protein) 237ml bottle PO SCH (18:00)
[2023-12-05] VITALS (26 sets, daily range): BP systolic 124–144; BP diastolic 72–86; PULSE 92–105; RESP 18–28; TEMP 97.6–98.2; O2SAT 91–99
[2023-12-05 09:50] LABS: ABG BASE EXCESS 7.8 mmol/L (-2.0-3.0); ABG HCO3 32.7 mmol/L (21.0-28.0); ABG OXYGEN SATURATION 92.7 % (94.0-98.0); ABG PH (T) 7.467 (7.350-7.450); ABG PO2 (T) 63.1 mmHg (83.0-108.0); ALLEN'S TEST Modified; FCOHb 0.8 % (0.5-1.5); FHHb 7.2 % (0.0-5.0); FLOW 35 L/min; FMetHb 0.3 % (0.0-1.5); FO2Hb 91.7 % (94.0-98.0); MODE HIGH FLOW; PATIENT TEMPERATURE 36.1
[2023-12-05] MEDS: levoFLOXACIN 500mg tablet PO SCH (11:25)
[2023-12-06] VITALS (22 sets, daily range): BP systolic 114–137; BP diastolic 62–82; PULSE 84–111; RESP 19–30; TEMP 97.6–98.3; O2SAT 87–100
[2023-12-06 10:38] LABS: ALANINE AMINOTRANSFERASE 49 U/L (12-78); ALBUMIN 2.6 G/DL (3.4-5.0); ALKALINE PHOSPHATASE 126 IU/L (46-116); ANION GAP 1 (8-16); ASPARTATE AMINO TRANSFERASE 45 U/L (10-37); BILIRUBIN,TOTAL 4.3 MG/DL (0.1-1.0); BLOOD UREA NITROGEN 25 MG/DL (7-18); BUN/CREATININE RATIO 34.7 (10.0-20.0); CALCIUM 7.7 MG/DL (8.5-10.1); CHLORIDE 98 MMOL/L (99-107); CREATININE 0.72 MG/DL (0.60-1.10); GLUCOSE 175 MG/DL (70-104); POTASSIUM 4.1 MMOL/L (3.5-5.1); SODIUM 133 MMOL/L (135-145); TOTAL CARBON DIOXIDE 34.5 MMOL/L (24-32); eCRCL 103 ML/MIN; eGFR > 90 ML/MIN
[2023-12-06 10:44] LABS: ALBUMIN/GLOBULIN RATIO 0.8 (1.1-1.5)
[2023-12-06 11:12] LABS: BASOPHILS % (AUTO) 0.1 % (0-1); EOSINOPHILS % (AUTO) 0 % (0-6); HEMATOCRIT 29.4 % (42.0-52.0); LYMPHOCYTES # (AUTO) 0.4 X10'3 (1.1-4.8); LYMPHOCYTES % (AUTO) 4.6 % (21-51); MEAN CORPUSCULAR HEMOGLOBIN 24.7 PG (27.0-31.0); MEAN CORPUSCULAR HGB CONC 30.6 g/dL (33.0-36.5); MEAN CORPUSCULAR VOLUME 80.5 FL (78-98); MEAN PLATELET VOLUME 8.1 FL (7.4-10.4); MONOCYTES # (AUTO) 0.7 X10'3 (0-0.9); MONOCYTES % (AUTO) 8.1 % (2-12); NEUTROPHILS # (AUTO) 8.1 X10'3 (1.8-7.7); NEUTROPHILS % (AUTO) 87.2 % (42-75); PLATELET COUNT 53 X10'3 (140-440); RED BLOOD COUNT 3.65 X10'6 (4.70-6.10); RED CELL DISTRIBUTION WIDTH 25.6 % (11.5-14.5); WHITE BLOOD COUNT 9.3 X10'3 (4.5-11.0)
[2023-12-06] MEDS: furosemide 40mg/4ml inj IV ONE (14:08)
[2023-12-07] VITALS (20 sets, daily range): BP systolic 111–145; BP diastolic 67–75; PULSE 77–112; RESP 17–28; TEMP 97.7–98; O2SAT 85–95
[2023-12-07] MEDS: lactulose 20gm/30ml cup PO SCH (01:04)
[2023-12-07] MEDS: LORazepam 2 mg/ml vial IV PRN (02:54)
[2023-12-07] MEDS: carVEDilol 3.125mg tablet PO SCH (15:03)
[2023-12-07] MEDS: lisinopril 5mg tablet PO SCH (15:03)
[2023-12-07] MEDS: rifaximin 550mg tablet PO SCH (20:02)
[2023-12-08] VITALS (28 sets, daily range): BP systolic 91–123; BP diastolic 56–69; PULSE 64–97; RESP 13–34; TEMP 97.5–98.4; O2SAT 88–94
[2023-12-08] MEDS ORDERED: predniSONE 20 mg tablet PO ONE (08:40)
[2023-12-08] MEDS: prednisone 10mg tablet PO ONE (13:45)
[2023-12-08 18:38] LABS: EOSINOPHILS # (AUTO) 0.4 X10'3 (0-0.9); HEMATOCRIT 31.7 % (42.0-52.0); LYMPHOCYTES # (AUTO) 0.6 X10'3 (1.1-4.8); MONOCYTES # (AUTO) 0.9 X10'3 (0-0.9); MONOCYTES % (AUTO) 12.5 % (2-12); NEUTROPHILS # (AUTO) 5.6 X10'3 (1.8-7.7); RED CELL DISTRIBUTION WIDTH 25.9 % (11.5-14.5)
[2023-12-08 18:39] LABS: BASOPHILS % (AUTO) 0.5 % (0-1); EOSINOPHILS % (AUTO) 4.9 % (0-6); LYMPHOCYTES % (AUTO) 8.6 % (21-51); MEAN CORPUSCULAR HEMOGLOBIN 25.1 PG (27.0-31.0); MEAN CORPUSCULAR HGB CONC 31.6 g/dL (33.0-36.5); MEAN CORPUSCULAR VOLUME 79.5 FL (78-98); NEUTROPHILS % (AUTO) 73.5 % (42-75); RED BLOOD COUNT 3.99 X10'6 (4.70-6.10); WHITE BLOOD COUNT 7.6 X10'3 (4.5-11.0)
[2023-12-08 18:47] LABS: ALANINE AMINOTRANSFERASE 57 U/L (12-78); ALBUMIN 2.2 G/DL (3.4-5.0); ALKALINE PHOSPHATASE 129 IU/L (46-116); ANION GAP -4 (8-16); ASPARTATE AMINO TRANSFERASE 54 U/L (10-37); BILIRUBIN,TOTAL 4.2 MG/DL (0.1-1.0); BLOOD UREA NITROGEN 25 MG/DL (7-18); BUN/CREATININE RATIO 33.3 (10.0-20.0); CALCIUM 7.7 MG/DL (8.5-10.1); CHLORIDE 99 MMOL/L (99-107); CREATININE 0.75 MG/DL (0.60-1.10); GLUCOSE 123 MG/DL (70-104); POTASSIUM 4.3 MMOL/L (3.5-5.1); SODIUM 133 MMOL/L (135-145); TOTAL CARBON DIOXIDE 37.6 MMOL/L (24-32); eCRCL 99 ML/MIN; eGFR > 90 ML/MIN
[2023-12-08 18:55] LABS: ALBUMIN/GLOBULIN RATIO 0.7 (1.1-1.5); TOTAL PROTEIN 5.3 G/DL (6.4-8.2)
[2023-12-08 19:08] LABS: PLATELET COUNT 35 X10'3 (140-440)
[2023-12-08 19:09] LABS: ANISOCYTOSIS 3+; HYPOCHROMASIA 1+; MICROCYTOSIS 1+; PLATELET ESTIMATE DECREASED
[2023-12-08 19:10] LABS: ELLIPTOCYTES FEW; POIKILOCYTOSIS 1+; SCHISTOCYTES 1+; TARGET CELLS FEW; TEAR DROP CELLS 1+
[2023-12-08] MEDS: budesonide 0.5mg/2ml UD nebule IH SCH (19:39)
[2023-12-09] VITALS (21 sets, daily range): BP systolic 93–127; BP diastolic 42–70; PULSE 72–92; RESP 13–34; TEMP 97.5–98.6; O2SAT 88–98
[2023-12-09 07:14] LABS: ALANINE AMINOTRANSFERASE 59 U/L (12-78); ALBUMIN 2.1 G/DL (3.4-5.0); ALKALINE PHOSPHATASE 114 IU/L (46-116); ANION GAP 1 (8-16); ASPARTATE AMINO TRANSFERASE 56 U/L (10-37); BILIRUBIN,TOTAL 4.4 MG/DL (0.1-1.0); BLOOD UREA NITROGEN 25 MG/DL (7-18); BUN/CREATININE RATIO 33.8 (10.0-20.0); CALCIUM 7.5 MG/DL (8.5-10.1); CHLORIDE 98 MMOL/L (99-107); CREATININE 0.74 MG/DL (0.60-1.10); GLUCOSE 132 MG/DL (70-104); POTASSIUM 4.6 MMOL/L (3.5-5.1); SODIUM 132 MMOL/L (135-145); TOTAL CARBON DIOXIDE 32.8 MMOL/L (24-32); eCRCL 100 ML/MIN; eGFR > 90 ML/MIN
[2023-12-09 07:17] LABS: EOSINOPHILS # (AUTO) 0.1 X10'3 (0-0.9); NEUTROPHILS # (AUTO) 5.6 X10'3 (1.8-7.7)
[2023-12-09 07:22] LABS: BASOPHILS % (AUTO) 0.1 % (0-1); EOSINOPHILS % (AUTO) 1.4 % (0-6); HEMATOCRIT 31.3 % (42.0-52.0); HEMOGLOBIN 9.8 g/dl (14.0-17.9); LYMPHOCYTES # (AUTO) 0.4 X10'3 (1.1-4.8); LYMPHOCYTES % (AUTO) 6.1 % (21-51); MEAN CORPUSCULAR HEMOGLOBIN 25.1 PG (27.0-31.0); MEAN CORPUSCULAR HGB CONC 31.4 g/dL (33.0-36.5); MEAN CORPUSCULAR VOLUME 80.1 FL (78-98); MEAN PLATELET VOLUME 8.6 FL (7.4-10.4); MONOCYTES # (AUTO) 0.8 X10'3 (0-0.9); NEUTROPHILS % (AUTO) 80.4 % (42-75); RED CELL DISTRIBUTION WIDTH 25.9 % (11.5-14.5)
[2023-12-09 07:33] LABS: ALBUMIN/GLOBULIN RATIO 0.7 (1.1-1.5)
[2023-12-09 07:46] LABS: PLATELET COUNT 39 X10'3 (140-440)
[2023-12-09] MEDS: predniSONE 20 mg tablet PO SCH (08:30)
[2023-12-09] MEDS ORDERED: HYDROcodone/acetaminophen 5mg/325mg tablet 1/2 TAB PO PRN (18:05)
[2023-12-10] VITALS (22 sets, daily range): BP systolic 91–103; BP diastolic 53–58; PULSE 67–91; RESP 13–22; TEMP 97.6–98.3; O2SAT 88–98
[2023-12-10 08:06] LABS: BASOPHILS % (AUTO) 0.2 % (0-1); EOSINOPHILS # (AUTO) 0.2 X10'3 (0-0.9); EOSINOPHILS % (AUTO) 3.2 % (0-6); HEMATOCRIT 28.7 % (42.0-52.0); LYMPHOCYTES % (AUTO) 12.7 % (21-51); MEAN CORPUSCULAR HGB CONC 31.3 g/dL (33.0-36.5); MEAN CORPUSCULAR VOLUME 79.8 FL (78-98); MEAN PLATELET VOLUME 8.4 FL (7.4-10.4); MONOCYTES # (AUTO) 1.2 X10'3 (0-0.9); MONOCYTES % (AUTO) 16.4 % (2-12); NEUTROPHILS # (AUTO) 5.1 X10'3 (1.8-7.7); NEUTROPHILS % (AUTO) 67.5 % (42-75); RED CELL DISTRIBUTION WIDTH 25.5 % (11.5-14.5); WHITE BLOOD COUNT 7.6 X10'3 (4.5-11.0)
[2023-12-10 08:21] LABS: PLATELET COUNT 45 X10'3 (140-440)
[2023-12-10 08:35] LABS: ALANINE AMINOTRANSFERASE 67 U/L (12-78); ALBUMIN/GLOBULIN RATIO 0.6 (1.1-1.5); ALKALINE PHOSPHATASE 112 IU/L (46-116); ANION GAP -1 (8-16); ASPARTATE AMINO TRANSFERASE 61 U/L (10-37); BILIRUBIN,TOTAL 4.4 MG/DL (0.1-1.0); BLOOD UREA NITROGEN 26 MG/DL (7-18); BUN/CREATININE RATIO 35.6 (10.0-20.0); CALCIUM 7.4 MG/DL (8.5-10.1); CHLORIDE 100 MMOL/L (99-107); CREATININE 0.73 MG/DL (0.60-1.10); GLUCOSE 97 MG/DL (70-104); POTASSIUM 3.9 MMOL/L (3.5-5.1); SODIUM 133 MMOL/L (135-145); TOTAL CARBON DIOXIDE 33.5 MMOL/L (24-32); TOTAL PROTEIN 5.1 G/DL (6.4-8.2); eCRCL 101 ML/MIN; eGFR > 90 ML/MIN
[2023-12-10 08:49] LABS: ACANTHOCYTES FEW; ANISOCYTOSIS 3+; ELLIPTOCYTES FEW; HYPOCHROMASIA 2+; MICROCYTOSIS 1+; PLATELET ESTIMATE DECREASED; SMUDGE CELLS FEW; TARGET CELLS FEW; TOTAL CELLS COUNTED 100
[2023-12-10 08:50] LABS: BURR CELLS FEW; TEAR DROP CELLS FEW
[2023-12-10] MEDS: furosemide 40mg/4ml inj IV SCH (17:48)
[2023-12-10] MEDS: HYDROcodone/acetaminophen 5mg/325mg tablet PO PRN (20:36)
[2023-12-11] VITALS (17 sets, daily range): BP systolic 82–105; BP diastolic 46–67; PULSE 62–88; RESP 13–23; TEMP 97.8–98.6; O2SAT 90–98
[2023-12-11 07:52] LABS: EOSINOPHILS # (AUTO) 0.2 X10'3 (0-0.9); HEMOGLOBIN 8.6 g/dl (14.0-17.9); NEUTROPHILS # (AUTO) 4.6 X10'3 (1.8-7.7)
[2023-12-11 07:56] LABS: BASOPHILS % (AUTO) 0.2 % (0-1); EOSINOPHILS % (AUTO) 3.2 % (0-6); HEMATOCRIT 27.6 % (42.0-52.0); LYMPHOCYTES % (AUTO) 13.8 % (21-51); MEAN CORPUSCULAR HEMOGLOBIN 24.7 PG (27.0-31.0); MEAN CORPUSCULAR HGB CONC 31.1 g/dL (33.0-36.5); MEAN CORPUSCULAR VOLUME 79.5 FL (78-98); MEAN PLATELET VOLUME 8.5 FL (7.4-10.4); MONOCYTES # (AUTO) 1.3 X10'3 (0-0.9); MONOCYTES % (AUTO) 17.8 % (2-12); RED BLOOD COUNT 3.47 X10'6 (4.70-6.10); RED CELL DISTRIBUTION WIDTH 25.9 % (11.5-14.5); WHITE BLOOD COUNT 7.1 X10'3 (4.5-11.0)
[2023-12-11 08:12] LABS: ALANINE AMINOTRANSFERASE 71 U/L (12-78); ANION GAP 0 (8-16); ASPARTATE AMINO TRANSFERASE 74 U/L (10-37); BILIRUBIN,TOTAL 3.9 MG/DL (0.1-1.0); BLOOD UREA NITROGEN 26 MG/DL (7-18); BUN/CREATININE RATIO 38.2 (10.0-20.0); CALCIUM 7.2 MG/DL (8.5-10.1); CHLORIDE 100 MMOL/L (99-107); CREATININE 0.68 MG/DL (0.60-1.10); GLUCOSE 90 MG/DL (70-104); POTASSIUM 4.1 MMOL/L (3.5-5.1); SODIUM 133 MMOL/L (135-145); eCRCL 109 ML/MIN; eGFR > 90 ML/MIN
[2023-12-11 08:13] LABS: ALBUMIN/GLOBULIN RATIO 0.7 (1.1-1.5); ALKALINE PHOSPHATASE 113 IU/L (46-116); TOTAL PROTEIN 4.8 G/DL (6.4-8.2)
[2023-12-11 08:24] LABS: PLATELET COUNT 47 X10'3 (140-440)
== END 2023-12-11 16:49 | DRG 280 ==
LOC: ER 04:58 → ED HOLD 10:12 → PCU 3S 15:22
PROVIDERS: ADMIT Internal Medicine; ATTEND Internal Medicine
PROC: B32T1ZZ Computerized Tomography (CT Scan) of Left Pulmonary Artery using Low Osmolar Contrast (ICD-10-PCS; principal; 2023-11-29)
PROC: B3201ZZ Computerized Tomography (CT Scan) of Thoracic Aorta using Low Osmolar Contrast (ICD-10-PCS; 2023-11-29)
PROC: B32S1ZZ Computerized Tomography (CT Scan) of Right Pulmonary Artery using Low Osmolar Contrast (ICD-10-PCS; 2023-11-29)
PROC: 30233N1 Transfusion of Nonautologous Red Blood Cells into Peripheral Vein, Percutaneous Approach (ICD-10-PCS; 2023-11-30)
PROC: 5A0935A Assistance with Respiratory Ventilation, Less than 24 Consecutive Hours, High Flow/Velocity Cannula (ICD-10-PCS; 2023-12-01)
PROC: 5A09357 Assistance with Respiratory Ventilation, Less than 24 Consecutive Hours, Continuous Positive Airway Pressure (ICD-10-PCS; 2023-12-01)
PROC: 5A0935A Assistance with Respiratory Ventilation, Less than 24 Consecutive Hours, High Flow/Velocity Cannula (ICD-10-PCS; 2023-12-02)
PROC: 5A09357 Assistance with Respiratory Ventilation, Less than 24 Consecutive Hours, Continuous Positive Airway Pressure (ICD-10-PCS; 2023-12-02)
PROC: 5A09357 Assistance with Respiratory Ventilation, Less than 24 Consecutive Hours, Continuous Positive Airway Pressure (ICD-10-PCS; 2023-12-03)
PROC: 5A0935A Assistance with Respiratory Ventilation, Less than 24 Consecutive Hours, High Flow/Velocity Cannula (ICD-10-PCS; 2023-12-04)
PROC: 5A09357 Assistance with Respiratory Ventilation, Less than 24 Consecutive Hours, Continuous Positive Airway Pressure (ICD-10-PCS; 2023-12-04)
PROC: 5A0955A Assistance with Respiratory Ventilation, Greater than 96 Consecutive Hours, High Flow/Velocity Cannula (ICD-10-PCS; 2023-12-04)
DX: I11.0 Hypertensive heart disease with heart failure (principal); I50.33 Acute on chronic diastolic (congestive) heart failure; I21.A1 Myocardial infarction type 2; J96.01 Acute respiratory failure with hypoxia; L03.115 Cellulitis of right lower limb; J44.1 Chronic obstructive pulmonary disease with (acute) exacerbation; E44.0 Moderate protein-calorie malnutrition; K76.82 Hepatic encephalopathy; Z20.822 Contact with and (suspected) exposure to COVID-19; Z66 Do not resuscitate; K74.60 Unspecified cirrhosis of liver; G89.29 Other chronic pain; K21.9 Gastro-esophageal reflux disease without esophagitis; M54.9 Dorsalgia, unspecified; D64.89 Other specified anemias; D69.6 Thrombocytopenia, unspecified; F17.210 Nicotine dependence, cigarettes, uncomplicated; B18.2 Chronic viral hepatitis C; Z95.1 Presence of aortocoronary bypass graft; Z79.899 Other long term (current) drug therapy; I25.2 Old myocardial infarction; Z68.25 Body mass index [BMI] 25.0-25.9, adult
CPT/HCPCS: 36415; 36430; 36600; 71045; 71275; 74176; 80048; 80053; 80076; 82140; 82803; 83735; 83880; 84100; 84145; 84484; 85007; 85008; 85018; 85025; 85379; 85610; 85730; 86885; 86900; 86901; 86922; 87081; 87502; 87503; 87811; 92508; 92616; 93005; 93308; 93970; 94640; 94660; 94760; 94799; 96374; 96375; 99285; A4314; A4615; A4620; A5200; A6213; A6250; A6449; A6590; A7015; G0378; J0690; J1940; J1956; J2060; J2270; J2405; J2919; J7040; J7512; P9016; P9047; Q9967

== ENCOUNTER 2024-01-18 14:52 | Inpatient (IN) | payer MEDICARE, MEDICAID ==
[~2024-01-18] VITALS: Ht 175.3 cm; Wt 82.3 kg
[2024-01-18] VITALS (8 sets, daily range): BP systolic 82–106; BP diastolic 47–79; PULSE 100–129; RESP 16–24; TEMP 96.8; O2SAT 97–100
[~2024-01-18 14:52] MED LIST changes: -ALBU8HFA PO; -ATEN-236 PO; -FOLI1TAB27 PO; +FURO-149 PO; -FURO40TA4 PO; -LACT10SO7 PO; -MULT-25 PO; -NICO-631 TD; -PRED20TA PO; -RIFA550T PO; -SPIIN INH; -thiamine tablet PO
[2024-01-18] MEDS: LidoCAINE 2% Topical Jelly 11mL syringe (UROJET) TOP ONE ×2 (15:15→18:36)
[2024-01-18 16:03] LABS: ALBUMIN 2.1 G/DL (3.4-5.0); ANION GAP 9 (8-16); BLOOD UREA NITROGEN 21 MG/DL (7-18); CALCIUM 7.8 MG/DL (8.5-10.1); CHLORIDE 100 MMOL/L (99-107); CREATININE 0.84 MG/DL (0.60-1.10); GLUCOSE 111 MG/DL (70-104); SODIUM 134 MMOL/L (135-145); TOTAL CARBON DIOXIDE 25.1 MMOL/L (24-32); eCRCL 85 ML/MIN; eGFR > 90 ML/MIN
[2024-01-18 16:04] LABS: BASOPHILS % (AUTO) 0.2 % (0-1); EOSINOPHILS % (AUTO) 0.2 % (0-6); HEMATOCRIT 32.6 % (42.0-52.0); HEMOGLOBIN 10.6 g/dl (14.0-17.9); LYMPHOCYTES % (AUTO) 6.1 % (21-51); MEAN CORPUSCULAR HEMOGLOBIN 29.2 PG (27.0-31.0); MEAN CORPUSCULAR HGB CONC 32.6 g/dL (33.0-36.5); MEAN CORPUSCULAR VOLUME 89.5 FL (78-98); MONOCYTES # (AUTO) 1.6 X10'3 (0-0.9); MONOCYTES % (AUTO) 9.9 % (2-12); NEUTROPHILS # (AUTO) 13.1 X10'3 (1.8-7.7); NEUTROPHILS % (AUTO) 83.6 % (42-75); PLATELET COUNT 102 X10'3 (140-440); RED BLOOD COUNT 3.64 X10'6 (4.70-6.10); RED CELL DISTRIBUTION WIDTH 25.5 % (11.5-14.5); WHITE BLOOD COUNT 15.7 X10'3 (4.5-11.0)
[2024-01-18 16:26] LABS: TOTAL CELLS COUNTED 100
[2024-01-18 16:27] LABS: ANISOCYTOSIS 3+; PLATELET ESTIMATE DECREASED
[2024-01-18 16:28] LABS: ELLIPTOCYTES 1+; HYPOCHROMASIA 1+; POLYCHROMASIA 1+; SCHISTOCYTES FEW; TEAR DROP CELLS FEW
[2024-01-18] MEDS: VANCOMYCIN 2GM/400ML H20 (PEG) 400 ML IV ONE (16:37)
[2024-01-18] MEDS: normal saline 1000ML IV soln IVB ONE ×2 (16:38→16:39)
[2024-01-18 16:45] LABS: ABG HCO3 24.1 mmol/L (21.0-28.0); ABG OXYGEN SATURATION 96.7 % (94.0-98.0); ABG PCO2 (T) 33.6 mmHg (35.0-48.0); ABG PH (T) 7.465 (7.350-7.450); ABG PO2 (T) 76.4 mmHg (83.0-108.0); ALLEN'S TEST POSITIVE; FCOHb 1.1 % (0.5-1.5); FHHb 3.3 % (0.0-5.0); FO2Hb 95.6 % (94.0-98.0); MODE PRVC; PATIENT TEMPERATURE 34.6; RESPIRATORY RATE 18 b/min; TIDAL VOLUME 800 mL; TOTAL HEMOGLOBIN 10.8 G/dl (13.5-17.5)
[2024-01-18] MEDS: etomidate 2mg/ml inj. IV ONE (16:47)
[2024-01-18] MEDS: rocuronium 10mg/ml inj IV ONE (16:47)
[2024-01-18 16:56] LABS: CREATINE KINASE 117 U/L (39-308)
[2024-01-18 16:59] LABS: CLARITY,URINE CLEAR (Clear); COLOR,URINE AMBER (Yellow)
[2024-01-18 17:00] LABS: POTASSIUM 3.4 MMOL/L (3.5-5.1)
[2024-01-18 17:01] LABS: UA COLLECTION TYPE FOLEY CATH
[2024-01-18 17:05] LABS: BACTERIA,URINE FEW /HPF (Neg); FINE GRANULAR CAST 0-3 /LPF (NEGATIVE); HYALINE CASTS 0-3 /LPF (NEGATIVE); MUCUS STRANDS MANY /LPF (Neg); RBC,URINE 0-2 /HPF (0-2); RENAL CELLS, URINE FEW /HPF; SQUAMOUS EPITHELIAL CELL,UR FEW /LPF (FEW)
[2024-01-18] MEDS: propofol 1000mg/100ml bottle 100 ML IV ONE (17:10)
[2024-01-18 17:19] LABS: URINE AMPHETAMINE SCREEN POSITIVE (Neg); URINE BARBITUATE SCREEN NEGATIVE (Neg); URINE BENZODIAZEPINES SCREEN POSITIVE (Neg); URINE CANNABINOID SCREEN POSITIVE (Neg); URINE COCAINE SCREEN NEGATIVE (Neg); URINE METHADONE SCREEN NEGATIVE (Neg); URINE OPIATE SCREEN POSITIVE (Neg); URINE PHENCYCLIDINE SCREEN NEGATIVE (Neg)
[2024-01-18] MEDS ORDERED: ondansetron/PF 4mg/2ml inj IV PRN (17:40)
[2024-01-18] MEDS ORDERED: acetaminophen 325mg tablet PO PRN ×2 (17:40)
[2024-01-18] MEDS ORDERED: magnesium hydroxide 30ml (MOM) UD suspension PO PRN (17:40)
[2024-01-18] MEDS ORDERED: morphine 2 MG/ML inj. syringe IV PRN (17:40)
[2024-01-18 18:11] LABS: ALANINE AMINOTRANSFERASE 73 U/L (12-78); ALKALINE PHOSPHATASE 144 IU/L (46-116); ASPARTATE AMINO TRANSFERASE 90 U/L (10-37); BILIRUBIN,TOTAL 8.9 MG/DL (0.1-1.0)
[2024-01-18 18:22] LABS: ALBUMIN/GLOBULIN RATIO 0.6 (1.1-1.5); TOTAL PROTEIN 5.7 G/DL (6.4-8.2)
[2024-01-18] MEDS ORDERED: HYDR-3964 PO (18:47)
[2024-01-18] MEDS ORDERED: LACT10SO7 PO (18:47)
[2024-01-18] MEDS ORDERED: THIA100T66 PO (18:47)
[2024-01-18] MEDS ORDERED: LACT10SO66 PO (18:47)
[2024-01-18] MEDS ORDERED: ALPR0.5T8 PO (18:47)
[2024-01-18] MEDS ORDERED: FOLI1TAB27 PO (18:47)
[2024-01-18] MEDS: propofol 1000mg/100ml bottle 100 ML IV SCH (18:56)
[2024-01-18] MEDS: normal saline 1000ml 1,000 ML IV SCH (19:15)
[2024-01-18 19:31] LABS: TRIGLYCERIDES 43 MG/DL (20-135)
[2024-01-18] MEDS ORDERED: piperacillin/tazo 4.5gm/100ml 100 ML IV SCH (20:00)
[2024-01-18] MEDS: rifaximin 550mg tablet PO SCH (22:59)
[2024-01-18] MEDS: famotidine/PF 10 mg/ml inj IV SCH (22:59)
[2024-01-18] MEDS: lactulose 20gm/30ml cup PO SCH (22:59)
[2024-01-18] MEDS: enoxaparin 40mg/0.4ml syringe SQ SCH (23:00)
[2024-01-19] VITALS (16 sets, daily range): BP systolic 73–96; BP diastolic 32–50; PULSE 96–124; RESP 16–37; O2SAT 85–100
[2024-01-19] MEDS: piperacillin/tazo 4.5gm/100ml 100 ML IV SCH (00:35)
[2024-01-19 02:33] LABS: BASOPHILS % (AUTO) 0.2 % (0-1); EOSINOPHILS # (AUTO) 0.1 X10'3 (0-0.9); EOSINOPHILS % (AUTO) 0.4 % (0-6); HEMATOCRIT 28.3 % (42.0-52.0); HEMOGLOBIN 9.1 g/dl (14.0-17.9); LYMPHOCYTES # (AUTO) 1.4 X10'3 (1.1-4.8); LYMPHOCYTES % (AUTO) 7.6 % (21-51); MEAN CORPUSCULAR HEMOGLOBIN 29.1 PG (27.0-31.0); MEAN CORPUSCULAR HGB CONC 32.2 g/dL (33.0-36.5); MEAN CORPUSCULAR VOLUME 90.2 FL (78-98); MEAN PLATELET VOLUME 7.2 FL (7.4-10.4); MONOCYTES # (AUTO) 2.4 X10'3 (0-0.9); MONOCYTES % (AUTO) 13.4 % (2-12); NEUTROPHILS # (AUTO) 14.1 X10'3 (1.8-7.7); NEUTROPHILS % (AUTO) 78.4 % (42-75); PLATELET COUNT 98 X10'3 (140-440); RED BLOOD COUNT 3.14 X10'6 (4.70-6.10); RED CELL DISTRIBUTION WIDTH 25.6 % (11.5-14.5)
[2024-01-19 02:52] LABS: ALANINE AMINOTRANSFERASE 59 U/L (12-78); ALBUMIN 1.8 G/DL (3.4-5.0); ALKALINE PHOSPHATASE 131 IU/L (46-116); ANION GAP 8 (8-16); ASPARTATE AMINO TRANSFERASE 85 U/L (10-37); BILIRUBIN,TOTAL 7.4 MG/DL (0.1-1.0); BLOOD UREA NITROGEN 25 MG/DL (7-18); BUN/CREATININE RATIO 27.8 (10.0-20.0); CHLORIDE 102 MMOL/L (99-107); GLUCOSE 87 MG/DL (70-104); MAGNESIUM 1.7 MG/DL (1.5-2.4); POTASSIUM 3.2 MMOL/L (3.5-5.1); SODIUM 135 MMOL/L (135-145); TOTAL CARBON DIOXIDE 25.5 MMOL/L (24-32); eCRCL 80 ML/MIN; eGFR 84 ML/MIN
[2024-01-19 02:57] LABS: ALBUMIN/GLOBULIN RATIO 0.6 (1.1-1.5); PHOSPHORUS 2.8 MG/DL (2.3-4.5); TOTAL PROTEIN 4.6 G/DL (6.4-8.2); TRIGLYCERIDES 36 MG/DL (20-135)
[2024-01-19] MEDS ORDERED: rocuronium 10mg/ml inj IV ONE (03:00)
[2024-01-19 03:07] LABS: ABG BASE EXCESS -3.2 mmol/L (-2.0-3.0); ABG HCO3 20.2 mmol/L (21.0-28.0); ABG OXYGEN SATURATION 98.6 % (94.0-98.0); ABG PCO2 (T) 30.6 mmHg (35.0-48.0); ABG PH (T) 7.438 (7.350-7.450); ABG PO2 (T) 112.8 mmHg (83.0-108.0); FCOHb 0.7 % (0.5-1.5); FHHb 1.4 % (0.0-5.0); FO2Hb 97.9 % (94.0-98.0); MODE prvc; PEEP 5 cm H2O; RESPIRATORY RATE 16 b/min; TIDAL VOLUME 450 mL; TOTAL HEMOGLOBIN 9.9 G/dl (13.5-17.5)
[2024-01-19 03:59] LABS: ANISOCYTOSIS 3+; PLATELET ESTIMATE DECREASED; POLYCHROMASIA 1+; TOTAL CELLS COUNTED 100
[2024-01-19 04:00] LABS: ACANTHOCYTES 1+; BURR CELLS 1+; ELLIPTOCYTES 1+; SCHISTOCYTES FEW
[2024-01-19] MEDS: Potassium Cl inj 40 MEQ in sodium chloride 0.45% 500ml 500 ML IV ONE (07:05)
[2024-01-19] MEDS: magnesium sulf-water 2g/50mL 50 ML IV ONE (07:21)
[2024-01-19] MEDS: ringers solution, lacted 1,000 ML IV ONE (07:52)
[2024-01-19] MEDS: NORMAL SALINE IV ONE (08:25)
[2024-01-19] MEDS: TOBRAMYCIN IV ONE (08:25)
[2024-01-19] MEDS: morphine 4 MG/ML inj SYRINge IV PRN ×2 (10:52→11:25)
[2024-01-19] MEDS: LORazepam 2 mg/ml vial IV PRN (10:52)
[2024-01-19] MEDS ORDERED: acetaminophen 325mg/10.15ml oral unit dose solution PO PRN ×2 (13:32)
== END 2024-01-19 17:49 | DRG 871 ==
LOC: ER 14:53 → ED HOLD 17:43 → CICU 2S 22:15
PROVIDERS: ADMIT Internal Medicine Critical Care Medicine; ATTEND Internal Medicine Critical Care Medicine
PROC: 5A1935Z Respiratory Ventilation, Less than 24 Consecutive Hours (ICD-10-PCS; principal; 2024-01-18)
PROC: 0BH17EZ Insertion of Endotracheal Airway into Trachea, Via Natural or Artificial Opening (ICD-10-PCS; 2024-01-18)
DX: A41.9 Sepsis, unspecified organism (principal); G93.41 Metabolic encephalopathy; J69.0 Pneumonitis due to inhalation of food and vomit; J96.01 Acute respiratory failure with hypoxia; J18.9 Pneumonia, unspecified organism; J44.0 Chronic obstructive pulmonary disease with (acute) lower respiratory infection; I11.0 Hypertensive heart disease with heart failure; R65.20 Severe sepsis without septic shock; I50.9 Heart failure, unspecified; J44.9 Chronic obstructive pulmonary disease, unspecified; K74.60 Unspecified cirrhosis of liver; G89.29 Other chronic pain; K72.90 Hepatic failure, unspecified without coma; I25.2 Old myocardial infarction; Z51.5 Encounter for palliative care
CPT/HCPCS: 36415; 36600; 70450; 71045; 71250; 74176; 80048; 80053; 80076; 80305; 81001; 82140; 82550; 82803; 83605; 83735; 84100; 84145; 84478; 85007; 85018; 85025; 87040; 87070; 87077; 87081; 87088; 87186; 93005; 94002; 94003; 94760; 96374; 96375; 99291; A4615; A6250; A6449; C1751; C1758; G0378; J1650; J2060; J2270; J2543; J2704; J3260; J3372; J3490; J7030; J7040; J7120